=== PATIENT | male | born 1970 | race Caucasian/White ===

== ENCOUNTER → 2020-10-06 08:47 | Outpatient (CLI) | payer OTHER, SELFPAY ==
[2020-10-06] MEDS: COVID-19 VACC, Ad26(JANSSEN)/PF 0.5 ML IM (08:59)
== END ==
PROVIDERS: Visit Provider Internal Medicine
DX: Z23 Encounter for immunization (principal)
CPT/HCPCS: 0031A; 91303

== ENCOUNTER → 2025-06-30 16:11 | Outpatient (CLI) | payer BC, SELFPAY ==
--- NOTE | 2025-06-30 16:12 | DI.MRI.S_ITS ---
PROCEDURE: MR LUMBAR SPINE WO CON INDICATIONS: spinal stenosis TECHNIQUE: Noncontrast sagittal T1 spin echo and T2 fast echo, sagittal STIR, and T2 fast spin echo through the lumbar spine. In cases with scoliosis, additional coronal T2 fast spin echo may be performed. COMPARISON: None. FINDINGS: Image quality: Diagnostic, with note made of motion artifact. Alignment and Curvature: There is normal bony alignment. Bone Marrow: Marrow is of normal overall signal. No acute vertebral body compression fractures. Spinal Cord: Conus medullaris terminates at the L1 level. Visualized cord demonstrates normal signal and size. Paraspinous Soft Tissues: No paravertebral masses. 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 T12-L1: Normal appearance. L1-L2: Normal appearance. L2-L3: The disc height and disk signal are well-preserved. Mild generalized disc bulge is seen. There is a superimposed central disc protrusion. There is a focal annular fissure seen posteriorly. There is [id number] left-sided and no significant right-sided neural narrowing. No significant central canal narrowing is seen. L3-L4: Mild loss of disc height is seen. Loss of disc signal is seen. Mild to moderate disc bulge is seen with a mild central disc protrusion. Mild facet joint hypertrophy is seen. There is at least moderate left-sided neural narrowing with a degree of compression upon the exiting left L3 nerve root. There is moderate right-sided neural narrowing. Mild central canal narrowing is seen. L4-L5: The disc height and disk signal are relatively well-preserved. Mild generalized disc bulge is seen. Mild facet joint hypertrophy is seen. There is at least moderate left-sided neural foraminal narrowing with minimal compression upon the exiting left L4 nerve root. There is mild right-sided neural narrowing. Minimal central canal narrowing is seen. L5-S1: The disc height is well-preserved. Loss of disc signal is seen at this level. Mild generalized disc bulge is seen. There is a superimposed central disc protrusion. Mild facet joint hypertrophy is seen. Moderate bilateral neural foraminal narrowing is seen. Minimal central canal narrowing is seen. 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 Dictated by: Christopher Husain M.D. on 06/30/2025 at 16:10 Approved by: Christopher Husain M.D. on 06/30/2025 at 16:13
== END ==
LOC: MRI 16:12
PROVIDERS: Referring Provider Orthopaedic Surgery; Visit Provider Orthopaedic Surgery
DX: M48.061 Spinal stenosis, lumbar region without neurogenic claudication (principal); M47.816 Spondylosis without myelopathy or radiculopathy, lumbar region; M47.817 Spondylosis without myelopathy or radiculopathy, lumbosacral region; M48.07 Spinal stenosis, lumbosacral region
CPT/HCPCS: 72148